=== PATIENT | female | born 1955 | race Caucasian/White ===

== ENCOUNTER 2017-09-13 10:22 | Inpatient (IN) ==
--- NOTE | 2017-09-12 15:45 | MH ---
cc: Drew Posey MD DATE OF ADMISSION: 09/13/2017 DATE OF ADMISSION: 09/13/2017 ADMITTING DIAGNOSIS: Pelvic mass. CHIEF COMPLAINT: Pelvic pain. HISTORY OF PRESENT ILLNESS: The patient is a 62-year-old single white female, para 0-0-1-0, with LMP in 2001. On the evening of 07/22/2017, she had acute onset of abdominal pain in the left lower quadrant, the next day had some knife-like pain with nausea and vomiting that continued throughout that day and the next, then got a little better. By 07/25/2017, she felt even better and came in for a new patient evaluation on 07/28/2017 with some bloating. Her examination was pertinent for a pelvic mass, left lower quadrant long-term to her umbilicus. Her Pap smear was normal. A CA-125 from 08/07/2017 was 51. A pelvic ultrasound from 07/28/2017 revealed a uterus measuring 6.7 cm. Endometrium normal at 4. Ovaries were not seen, but there are 2 cystic masses complex 10 x 8 cm in size on the right side. There is no free fluid or signs of metastatic disease. She is now admitted for surgical evaluation. PAST SURGICAL HISTORY: T and A in 1958. MEDICATIONS: None. ALLERGIES: STRAWBERRIES. SERIOUS MEDICAL ILLNESSES: None. TRANSFUSIONS: None. OBSTETRIC HISTORY: One spontaneous . 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 Alcohol: Occasional. Tobacco: 1/2 pack a day for 30 years. Drugs: None. REVIEW OF SYSTEMS: Negative. PHYSICAL EXAMINATION: GENERAL: A well-nourished, well-developed white female. VITAL SIGNS: Stable. Weight 108 pounds, height 5 feet 3 inches. HEENT: Normal. CHEST: Clear. HEART: Regular rate. BREASTS: Symmetrical. ABDOMEN: Soft with a cystic mass, left lower quadrant long-term to the umbilicus. PELVIC: Vagina is atrophic. Cervix normal. Uterus is normal size and shape with the cystic mass. ASSESSMENT: As above. PLAN: She is now admitted for laparoscopy with probable laparotomy, VANESSA/BSO. I explained the possibility of benign or malignant findings and possible need for additional surgery pending findings. Preop bowel prep has been ordered and Dr. Frias has been asked to be available if needed. The risks and benefits and complications were explained and accepted. MD EVONNE White/ROC , 03:06 PM , 03:44 PM
[~2017-09-13 10:22] MED LIST: Microfibrillar Collagen Hemostat 1 GM Packet TOPICAL ONE
[2017-09-13] MEDS ORDERED: ceFAZolin 2 GM Premix Inj 0 GM/0 ML PIGGYBACK IV.SIG ONE (11:46)
[2017-09-13] MEDS ORDERED: Lidocaine PF 1% Inj 5 ML Syringe INFILTRATN ONE (12:00)
[2017-09-13] MEDS ORDERED: Neostigmine Inj 5 MG/5 ML Syringe IV.PUSH ONE (12:00)
[2017-09-13] MEDS ORDERED: Glycopyrrolate Inj 1 MG/5 ML Syringe IV.PUSH ONE (12:00)
[2017-09-13] MEDS ORDERED: Ketorolac Inj 30 MG/ML (IVP) Vial IV.PUSH ONE (12:00)
[2017-09-13] MEDS ORDERED: Clindamycin Inj 600 MG/4 ML Vial ONE (12:23)
[2017-09-13] MEDS ORDERED: ceFAZolin 2 GM Premix Inj 2 GM/50 ML PIGGYBACK IV.SIG PRN (12:24)
[2017-09-13] MEDS ORDERED: Metoprolol Tartrate 25 MG Tablet PO SCH (12:30)
[2017-09-13] MEDS ORDERED: Chlorhexidine Gluconate 2% 1 Pack (2 Cloths) TOPICAL SCH (12:30)
[2017-09-13] MEDS ORDERED: Clindamycin 600 mg/NS Premix 600 MG/50 ML PIGGYBACK IV.SIG SCH (12:45)
[2017-09-13] MEDS ORDERED: Sodium Chlor 0.9% Inj 500 ML IV.SIG SCH (13:00)
[2017-09-13] MEDS ORDERED: Dexmedetomidine Inj 200 MCG/2 ML Vial ONE (14:39)
[2017-09-13] MEDS ORDERED: Naloxone Inj 0.4 MG/ML Vial IV.PUSH PRN (14:53)
[2017-09-13] MEDS ORDERED: HYDROmorphone PCA Inj 6 MG/30 ML PCA.VIAL PCA PRN (14:53)
[2017-09-13] MEDS ORDERED: HYDROmorphone PF Inj 1 MG/ML Ampul IV.PUSH ONE (14:53)
[2017-09-13] MEDS ORDERED: KCL 20 mEq/D5W/NaCl 0.45% Inj 1,000 ML IV.CONT SCH (15:00)
[2017-09-13] MEDS ORDERED: *Meperidine Inj 25 MG/ML Vial PERIprocedural Use ONLY ONE (15:42)
[2017-09-13] MEDS ORDERED: *morphine SULFATE 4 MG/ML PERIprocedure ONLY ONE (16:03)
[2017-09-13] MEDS ORDERED: fentaNYL Citrate Inj 100 MCG/2 ML Ampul ONE (16:39)
[2017-09-13 18:06] LABS: Hemoglobin 14.9 gm/dL (11.6-15.3); Mean Corpuscular HGB Conc 33.8 % (32.0-36.0); Mean Corpuscular Hemoglobin 32.1 pg (27.0-34.0); Mean Corpuscular Volume 95.1 fL (80.0-100.0); Mean Platelet Volume 8.7 fL (7.0-11.0); Platelet Count 211 th/mm3 (150-450); Red Blood Count 4.62 mil/mm3 (4.00-5.30); Red Cell Distribution Width 13.2 % (11.6-17.2); White Blood Count 13.7 th/mm3 (4.0-11.0)
--- NOTE | 2017-09-13 20:14 | MP ---
cc: Drew Posey MD DATE OF OPERATION: 09/13/2017 PREOPERATIVE DIAGNOSIS: Pelvic mass. POSTOPERATIVE DIAGNOSIS: Bilateral ovarian serous cystadenomas. PROCEDURE PERFORMED: Laparoscopy, followed by a VANESSA/BSO. ANESTHESIA: General ET. SURGEON: Drew Posey MD DUMPER: ILA Tirado ESTIMATED BLOOD LOSS: About 100 mL. FLUIDS: 1.8 liter crystalloid. OBJECTIVE FINDINGS: Following induction of adequate general endotracheal anesthesia, the patient was prepped and draped supine on the operating table in the dorsal lithotomy position in the usual sterile fashion, with the bladder being drained by Anne catheterization. Exam under anesthesia revealed a mobile pelvic mass in the cul-de-sac and one anterior to the uterus. The abdomen opened through a 0.5 cm supraumbilical incision. A 5 port was placed and laparoscope was inserted. This revealed a 10-12 cm mass anterior to the uterus, mobile and then 1 in the posterior cul-de-sac. Due to the size and location, it was felt best to proceed with laparotomy to remove the masses intact. Inspection of the pelvis and the abdomen revealed no suspicious findings for metastatic disease. There was no ascites. No excrescences. Liver edge was normal. Appendix was normal. Scope was now withdrawn. The abdomen was opened through a Pfannenstiel incision using knife to cut down through the skin to the fascia. The fascia was opened transversely, stripped from the muscles, muscles were split in the midline and the peritoneum opened sharply. Peritoneal washings collected for permanent study. The bowels were packed off the field with moistened laps. The left ovarian mass was delivered through the abdominal wound as was the right ovarian mass, and large Caro clamps were placed on each uterine cornua for traction. The left round ligament was suture ligated with silk and cut. The left ovarian pedicle was triply clamped with Heaneys, cut, and ligated x 2 with -0 Vicryl and specimen sent for more frozen and same on the right. It was now possible to place the elastic protractor. Adhesions of the fundus to the bowel were lysed sharply, and the fundus elevated with Caro clamps. The bladder flap was taken down sharply. Uterine vessels , triply clamped with Heaneys, cut, ligated with 2 with 0 vicryl on the left and right. Straight Jessy clamp was used to take the cardinals, uterosacrals, clamping, cutting, and ligating in a [place] fashion. The vaginal wall was pierced with the knife. The cervix was excised off the vaginal cuff. This allowed me to pass off the cervix and uterus. Frozen section returned benign serous cystadenomas on both masses. The vaginal cuff was then closed in the corners with an Do stitch of 0 Vicryl and the cuff with a running locking stitch of 0 Vicryl with reinforcements at each corner with 0 Vicryl. Irrigation was performed. No bleeding was evident. Ureters were inspected and good peristalsis. Pelvis was packed with a lap and checked after 5 minutes; there was no bleeding. The operative sites were dusted with Lisandra. All instruments were removed. Counts were correct. The anterior peritoneum closed with a running 2-0 Vicryl. Muscles were irrigated. Muscles were dusted with Lisandra, and the fascia closed with a running locking stitch of 0 Vicryl corner to midline and tied, subcutaneous with running 3-0 Vicryl. The skin was closed with a running subcuticular 4-0 Monocryl. The laparoscope wound closed with 3-0 Vicryl. Dermabond applied. All counts were correct. The patient received a TAP block and was taken to recovery in good condition. MD EVONNE White/joanna/petey , 03:21 PM , 03:33 PM ROD
[2017-09-13] MEDS ORDERED: Zolpidem Tartrate 5 MG Tablet PO PRN (21:00)
[2017-09-13] MEDS: Ketorolac Inj 30 MG/ML (IVP) Vial IV.PUSH SCH (22:01)
[2017-09-13] MEDS: Docusate Sodium 100 MG Capsule PO SCH (22:02)
[2017-09-14 05:56] LABS: Baso # (Auto) 0.1 th/mm3 (0.0-0.2); Baso % (Auto) 0.7 % (0.0-2.0); Eos % (Auto) 0.2 % (0.0-4.0); Hematocrit 42.9 % (35.0-46.0); Hemoglobin 14.4 gm/dL (11.6-15.3); Lymph % (Auto) 15.7 % (9.0-44.0); Mean Corpuscular HGB Conc 33.5 % (32.0-36.0); Mean Corpuscular Hemoglobin 31.8 pg (27.0-34.0); Mean Corpuscular Volume 94.9 fL (80.0-100.0); Mean Platelet Volume 8.9 fL (7.0-11.0); Mono % (Auto) 8.2 % (0.0-8.0); Neut # (Auto) 9.6 th/mm3 (1.8-7.7); Neut % (Auto) 75.2 % (16.0-70.0); Platelet Count 226 th/mm3 (150-450); Red Blood Count 4.52 mil/mm3 (4.00-5.30); Red Cell Distribution Width 13.2 % (11.6-17.2); White Blood Count 12.7 th/mm3 (4.0-11.0)
[2017-09-14 06:24] LABS: Calcium 8.6 mg/dL (8.5-10.1); Carbon Dioxide 24.3 meq/L (21.0-32.0); Potassium 4.2 meq/L (3.5-5.1)
[2017-09-14] MEDS: Ketorolac Inj 30 MG/ML (IVP) Vial IV.PUSH SCH (19:32)
[2017-09-14] MEDS: Docusate Sodium 100 MG Capsule PO SCH (21:41)
[2017-09-15] MEDS: Ketorolac Inj 30 MG/ML (IVP) Vial IV.PUSH SCH (01:05)
[2017-09-15 05:15] VITALS: RESP 18
[2017-09-15 08:09] VITALS: BP 145/87; PULSE 77; TEMP 97.9; O2SAT 94
--- NOTE | 2017-09-15 08:52 | MD ---
cc: Drew Posey MD DATE OF DISCHARGE: ADMITTING DIAGNOSIS: Pelvic mass. DISCHARGE DIAGNOSIS; Bilateral ovarian cystadenomas. PROCEDURE: Laparoscopy followed by VANESSA-BSO on 09/13/2017. HISTORY OF PRESENT ILLNESS AND HOSPITAL COURSE: The patient is a 62-year-old single white female, para 0-0-1-0 with an LMP in 2001. On the evening of 07/22/2017, she had acute onset of abdominal pain, left lower quadrant. The next day had some knife-like pain with nausea and vomiting that continued throughout the day and the next and got a little better. She came in for a new patient evaluation on 07/28/2017 with some bloating. Exam pertinent for a pelvic mass, left lower quadrant longterm to her umbilicus. Her Pap smear was normal. Her CA-125 from 07/28/2017 was 51. Pelvic ultrasound revealed a uterus measuring 6.7 cm, endometrium 4 mm and 2 cystic masses 10 x 8 cm. There is no free fluid or symptoms of metastatic disease. On the day of admission, she underwent laparoscopy, followed by laparotomy with VANESSA-BSO. Both ovaries were enlarged to about 10 cm with findings consistent with benign serous cystadenomas. Postop did well. Discharged home in excellent condition 09/15/2017, advised NPV, light activity, no driving, return to see me in 2 weeks. She will take Motrin and Tylenol for pain relief. MD EVONNE White/KD , 08:22 AM , 08:28 AM
[2017-09-15] MEDS: Docusate Sodium 100 MG Capsule PO SCH (09:29)
== END 2017-09-15 10:06 | disposition home or self-care (01) ==
LOC: HSDC 10:22 → HSDI 15:20 → H1EA 16:55
PROVIDERS: ADMIT Obstetrics & Gynecology; ATTEND Obstetrics & Gynecology